=== PATIENT | female | born 1965 | race African-American/Black ===

== ENCOUNTER 2017-01-02 05:27 | Day surgery (SDC) | payer OTHER ==
[~2017-01-02] VITALS: Ht 162.6 cm; Wt 61.3 kg
[~2017-01-02 05:27] MED LIST: IRON325 MG PO; SINGULAIR10 MG PO
[2017-01-02 05:46] VITALS: BP 147/83
[2017-01-02 13:12] VITALS: BP 128/76
[2017-01-02 15:20] VITALS: BP 127/76
[2017-01-02 19:58] VITALS: BP 158/92
[2017-01-02 23:30] VITALS: BP 145/85
[2017-01-03 03:29] VITALS: BP 139/85
[2017-01-03 06:58] LABS: EOSINOPHIL (%) 0.1 % (0-5); HEMATOCRIT 31.1 % (36.0-46.0); IMMATURE GRANULOCYTE (%) 0.5 % (0.0-0.7); IMMATURE GRANULOCYTE COUNT 0.1 K/uL; INSTRUMENT ABS NEUTROPHIL CT 11.1 K/uL; LYMPHOCYTE COUNT 1.3 K/uL (1.0-2.8); MCH 30.1 PG (29.0-34.0); MCHC 33.1 G/DL (30.0-36.0); MCV 90.9 FL (83-99); MEAN PLAT.VOLUME 10.2 uM^3 (9.5-12.4); MONOCYTE (%) 4.2 % (3-12); MONOCYTE COUNT 0.6 K/uL (0-0.8); NEUTROPHIL (%) 85.3 % (45-76); NEUTROPHIL COUNT 11.1 K/uL (1.8-6.4); PLATELET COUNT 265 K/uL (156-360); RBC DIS.WIDTH-CV 13.9 % (11.8-14.6); RBC DIS.WIDTH-SD 46.1 % (39-53); RED BLOOD COUNT 3.42 M/uL (3.80-5.20)
[2017-01-03 07:23] LABS: ANION GAP 7 MEQ/L (2-14); CHLORIDE 106 MEQ/L (99-109); GFR ESTIMATE (CALCULATED) > 59 mL/min/; GLUCOSE 88 mg/dL (70-99); POTASSIUM 3.8 MEQ/L (3.7-5.4); SAMPLE HEMOLYSIS CHECK 0; SAMPLE ICTERIC CHECK 0; SAMPLE LIPEMIA CHECK 0; SODIUM 138 MEQ/L (136-147); UREA NITROGEN (BUN) 6 mg/dL (9-23)
[2017-01-03 08:00] VITALS: BP 134/84
== END 2017-01-03 10:38 | disposition home or self-care (01) ==
LOC: SDC 05:27 → 2SOUTH 11:08 → 2EAST 11:08 → 2SOUTH 11:08 → ENRESERV 11:10 → SDC 11:21 → ENRESERV 12:21 → 2EAST 12:41
PROVIDERS: Obstetrics & Gynecology Gynecology
DX: D25.0 Submucous leiomyoma of uterus (principal); N87.9 Dysplasia of cervix uteri, unspecified; N92.0 Excessive and frequent menstruation with regular cycle; D64.9 Anemia, unspecified; Z87.891 Personal history of nicotine dependence; Z88.0 Allergy status to penicillin; Z82.49 Family history of ischemic heart disease and other diseases of the circulatory system; Z80.3 Family history of malignant neoplasm of breast
CPT/HCPCS: 80048; 85025; 87086; 88302; 88307; C1769; G0378; J0330; J0690; J1100; J1170; J1644; J1885; J2250; J2405; J2710; J2765; J3010; J7120